=== PATIENT | female | born 1965 | race Asian ===

== ENCOUNTER 2016-06-16 10:58 | Day surgery (SDC) | payer OTHER ==
[2016-06-16] VITALS (7 sets, daily range): BP systolic 113–129; BP diastolic 52–74; PULSE 63–75; RESP 14–17; O2SAT 93–99
[~2016-06-16] VITALS: Ht 157.5 cm; Wt 79.4 kg
[~2016-06-16 10:58] MED LIST: ALBU8.5H2 INHALATION; CeFAZolin Inj 2 GM in IV Premix 1 EACH IV SCH; FLUT12AE10 IH; Lactated Ringer's 1,000 ML IV SCH
[2016-06-16] MEDS ORDERED: fentaNYL-PF 50 mCg/mL 2 mL Inj ONE (10:59)
[2016-06-16] MEDS ORDERED: Dexamethasone 4 mg/mL Inj ONE (10:59)
[2016-06-16] MEDS ORDERED: Propofol 10,000 mCg/mL 20 mL Inj ONE (10:59)
[2016-06-16] MEDS ORDERED: Ondansetron 2 mg/mL 2 mL Inj ONE (10:59)
[2016-06-16] MEDS ORDERED: Lactated Ringer's 1,000 ML IV ONE (11:46)
[2016-06-16] MEDS ORDERED: Lactated Ringer's 500 ML IV PRN (12:16)
[2016-06-16] MEDS ORDERED: Lactated Ringer's 1,000 ML IV SCH (12:16)
--- NOTE | 2016-06-16 12:16 | PCM.HPANE ---
Patient Data Surgeon Admitting Provider: Attending Provider:Hamilton Bonilla MD Primary Care Physician:Joel Other Provider:Dona Glover Anesthesia Reason for Visit History Of Breast Cancer,Disproportion Of Reconstr Ht/WT & BMI Height (Feet): 5 Height (Inches): 2.00 Weight (Kilograms): 79.379 Body Mass Index 32.00 Allergies Coded Allergies: TAPE (Verified Allergy, Unknown, UNKNOWN (PERMEABLE,ADHESIVE), 06/15/16) Past Anesthesia History Anesthesia History: Denies:: Abnormal Airway, Anesthesia Reactions, Difficult Intubation, Malignant Hyperthermia Diabetes History Hx Diabetes?: No MRSA MRSA: No Medications Hypertension Medication: No Home Meds Incl Beta Atilio: No Reported Medications Albuterol HFA (Proair HFA)8.5 Gm Hfa.aer.ad2 Puffs INHALATION Q4H PRN PRN #1 INHALER 06/15/16 Fluticasone Propionate (Flovent HFA 220 mcg)12 Gm Aer.w.adap1 Puff IH BID #12 GM Ref 0 02/05/15 Discontinued Reported Medications Albuterol HFA 8.5 Gm Hfa.aer.ad1 Puff IH Q4 PRN For Shortness of Breath #1 INHALER Ref 0 05/07/14 History History of ENT Problems?: Yes HEENT History: Positive for:: Sinus Problem Denies:: Abnormal Airway Cataracts (HX DRY EYES) Difficult Intubation Denture Type: Partial- Upper Hx of Heart Problems?: Yes Cardiovascular History: Positive for:: Hypertension Denies:: Heart Murmur Hx of Respiratory Problem?: Yes Respiratory History: Positive for:: Asthma (MILD) Cough Dyspnea (W/ INTERMITTANT WHEEZING) Use of Inhalers / NEBS Denies:: Use of C-PAP Machine Hx Neurologic Problems?: No Hx of GI Problems?: Yes Gastrointestinal History: Positive for:: Gall Bladder Disease (S/P JASPAL) Other GI Pertinent History: HX UMBILICAL HERNIA S/P VENTRAL HERNIA RPR,LYSIS OF TETHERED ABD SCAR Hx of Problems?: Yes Genitourinary History: Positive for:: Urinary Tract Infection (HX OF) Female Hx: Positive for:: Problems with Breasts? (BILAT BR BX'S,MASTECTOMY LT, MASTOPEXY RT,RECONSTRUCTION) Denies:: Currently (TUBAL LIG) Pelvic Inflammatory (NEW RT BREAST NODULE NOTED) Skin History: Positive for:: History Skin Disorders? (SKIN CHANGES BILAT BREASTS, RASH RT KNEE) Denies:: Pressure Ulcers Hx Musculoskeletal Problems?: No Hx of Psycho/Social Problems?: No Hx Surgeries?: Yes (VENTRAL HERNIA RPR,LT BREAST BX,RT BREAST BX,MASTECTOMY, MASTOPEXY,RELEASE A) Hx Any Other Health Problems?: Yes Other History: Denies:: Cancer Endocrine Disease Hospitalization Thyroid Disease History Blood Transfusions: Denies:: Blood Transfusions Hx Diabetes: No Hx Alcohol Use: NoHx Substance Use: No Smoking Status: Never Smoker Have You Smoked inLast 12 mo: No Stop/Bang S-Snoring: Do You Snore Loudly: No T-Tired: feel tired, fatigued: No O-Obsered: Observed not breath: No P-Blood Pressure: treated: Yes B- Body Mass Index > 35 kg/m2: No A- Age over 50: Yes N- Neck Large Circumference: No G- Gender Male: No DEVANG Total Score: 2 Risk Assessment Category Category 1A: Patient has history of documented sleep apnea, and HAS NOT received any narcotic, sedative or anesthesia administration during this stay. Category 1B: Patient has history of documented sleep apnea, and HAS received any narcotic , sedative or anesthesia administration during this stay Category 2: Patient has SUSPECTED Obstructive Sleep Apnea, and HAS received any narcotic , sedative or anesthesia administration during this stay. Category 3: Patient has SUSPECTED Obstructive Sleep Apnea and HAS NOT received narcotic, sedative or anesthesia administration during this stay. Category 4: Outpatient in Procedural Areas with known sleep apnea or who screen positive for High Risk via the STOP/BANG questionnaire. Exam Exam Vital Signs Vital Signs Date Time Temp Pulse Resp B/P Pulse Ox O2 Delivery O2 Flow Rate FiO2 06/16/16 11:48 68 17 113/68 96 Room Air General Appearance: Alert, Oriented X3, Cooperative, No Acute Distress HEENT/AIRWAY: MP 2 Lungs: Normal Air Movement Heart: Exam Unremarkable Meds/Labs/Diagnostics Admission Meds Current Medications Lactated Ringer's (Lr) 1,000 ml @ ud STK-MED ONCE IV Last administered on t 11:46; Start 06/16/16 at 11:46; Stop 06/16/16 at 11:47; Status DC Plan Impression Patient chart reviewed, patient interviewed and anesthestic plan with risks, benefits, and alternatives discussed, and informed consent obtained. NPO Status: 06/15@2130 ASA Physical Status: ASA3 Severe Disease Anesthetic Plan: GA Bene/Risks/Altern/Consents: Yes HP Complete Prior to Induction: Yes Jose Dunbar MD Jun 16, 2016 12:16
[2016-06-16] MEDS ORDERED: Phenylephrine 10,000 mCg/mL Inj IVPUSH PRN (12:20)
[2016-06-16] MEDS ORDERED: Dexamethasone 4 mg/mL Inj IVPUSH PRN (12:20)
[2016-06-16] MEDS ORDERED: MetoCLOpramide 5 mg/mL 2 mL Inj IVPUSH PRN (12:20)
[2016-06-16] MEDS ORDERED: Ondansetron 2 mg/mL 2 mL Inj IVPUSH PRN (12:20)
[2016-06-16] MEDS ORDERED: HYDROmorphone 1 mg/mL Inj IVPUSH PRN (12:20)
[2016-06-16] MEDS ORDERED: EPHEDrine Sulfate 50 mg/mL Inj IVPUSH PRN (12:20)
[2016-06-16] MEDS ORDERED: fentaNYL-PF 50 mCg/mL 2 mL Inj IVPUSH PRN (12:20)
[2016-06-16] MEDS ORDERED: HYDROcodone-APAP 5-325 mg Tablet PO PRN (14:05)
--- NOTE | 2016-06-16 14:15 | PCM.ANEP2 ---
Post Anesthesia Evaluation ASA/CMS Post Anesthesia VS in Patient's Normal Range?: Yes Resp Stable; Airway Patent?: Yes CV Function & Hydration Stable: Yes Mental Status Recovered?: Yes Pain control Satisfactory?: Yes N/V Control Satisfactory?: Yes Jose Dunbar MD Jun 16, 2016 14:15
--- NOTE | 2016-06-16 14:15 | PCM.ANEP1 ---
Post Anesthesia Phase 1 PACU Phase 1 Assessment Vital Signs Vital Signs Date Time Temp Pulse Resp B/P Pulse Ox O2 Delivery O2 Flow Rate FiO2 06/16/16 14:10 75 15 124/64 98 Room Air 06/16/16 14:05 36.6 74 17 126/65 99 Room Air 06/16/16 11:48 68 17 113/68 96 Room Air Anesthetic Administered: GA Level of Alertness: Awake, talking DE LEON's with Equal Strength: Yes Pain: No Nausea or Vomiting: No Lungs: Normal Air Movement Dermatome Level: Full Sensation Jose Dunbar MD Jun 16, 2016 14:15
--- NOTE | 2016-06-18 19:35 | OP ---
[address] [address] OPERATIVE REPORT PATIENT: SATYA STEIN V : 1965 MR#: [id number] ADMIT: 06/16/2016 JOB ID: [id number] DATE OF SURGERY: 06/16/2016 PREOPERATIVE DIAGNOSIS(ES): 1. Asymmetry between reconstructed breast and [place] breast. 2. History of breast cancer. POSTOPERATIVE DIAGNOSIS(ES): 1. Asymmetry between reconstructed breast and [place] breast. 2. History of breast cancer. PROCEDURE: Revision right nipple-areolar reconstruction using a mastopexy technique. SURGEON: Hamilton Bonilla MD CREATIVE ASSISTANT: None. ANESTHESIA: General anesthesia. COMPLICATIONS: None apparent. SPECIMEN: None. INDICATIONS FOR PROCEDURE: This is a 51-year-old female patient with a history of left-sided breast cancer status post autologous breast reconstruction. I have worked with the patient on several occasions in the past, most recently I performed a right-sided mastopexy and left-sided nipple-areolar reconstruction. The patient is overall fairly happy with the result. However, the patient continues to have some asymmetry between the nipple-areolar complex size. At this point, right nipple-areolar reconstruction is indicated. PROCEDURES AND FINDINGS: The patient was identified in the preop in the preoperative area. With the patient in sitting position, I re-marked the desired infra-nipple areolar size and location. Excess nipple to fold distance was also marked. The patient was then taken back to the operating room and placed supine on the operating table. Appropriate time-outs were taken. General anesthesia was induced smoothly. The patient was then prepped and draped in the usual sterile manner. At this point, the left nipple-areolar complex was sized to be approximately 38 mm. Using the 38 mm nipple sizer, a nipple-areolar complex was marked on the right side. The outer ugashik of the reconstruction was then marked using the numbers obtained in the preoperative area. Superiorly approximately 1 cm of the nipple-areolar complex was marked for excision. Inferiorly the area marked for excision was approximately 1.5 cm, which included most of the new nipple-areolar complex plus some normal skin. An incision was then made along both the inner and outer excision perez. The intervening nipple areolar complex and skin was de-epithelialized. Once this had been done I deepened the incision down through the dermis, between the inner and outer ugashik, leaving a 5-6 mm cuff on the outer incision. Once this had been done, incision was then made again right along the new nipple-areolar complex. The dermis between the new nipple-areolar complex and the cuff was removed. Once this had been done, a CV3 [place]-Momo suture was then used and placed in a pursestring manner on the dermal cuff that was left just inside the outer incision. Once this had been done, the outer nipple-areolar complex. incision was cinched down to 38 mm. The [place]-Momo suture was then tied down using 10 knots. The knot was then buried in the deep tissue. Once this had been done, the nipple-areolar complex was then sutured to the keyhole, first with a layer of 3-0 Monocryl deep dermal suture, followed by 4-0 Monocryl running subcuticular suture. Skin glue was applied. The patient tolerated the procedure well. Needle count, sponge count, and instrument counts were correct at the end of the procedure. The patient was extubated and transported to recovery in stable condition.
== END 2016-06-16 23:59 | disposition home or self-care (01) ==
LOC: SAS 10:58
PROVIDERS: ATTEND Plastic Surgery
DX: N65.1 Disproportion of reconstructed breast (principal); I10 Essential (primary) hypertension; J45.909 Unspecified asthma, uncomplicated; Z87.440 Personal history of urinary (tract) infections; Z85.3 Personal history of malignant neoplasm of breast
CPT/HCPCS: 19350; J0690; J1100; J2250; J2405; J3010; J7120

== ENCOUNTER → 2016-12-06 | Day surgery (SDC) | payer OTHER ==
[~2016-12-06] VITALS: Ht 157.5 cm; Wt 81.0 kg
[~2016-12-06] MED LIST changes: +0.9% Sodium Chloride 1,000 ML IV PRN; -CeFAZolin Inj 2 GM in IV Premix 1 EACH IV SCH; -Lactated Ringer's 1,000 ML IV SCH; +Sodium Chloride LOK Flush 10 mL Syringe IV PRN; +fentaNYL-PF 50 mCg/mL 2 mL Inj IVPUSH PRN
[2016-12-06 08:31] VITALS: BP 123/65; PULSE 59; RESP 17; O2SAT 98
--- NOTE | 2016-12-06 09:16 | PCM.ENDCOL ---
Colonoscopy Date of Service: Dec 06, 2016 Physician Sam Edmond MD Pre Procedure Diagnosis: Screening abdominal pain Post Procedure Dx & Findings: Diverticuli hemorrhoids Procedure Colonoscopy PROCEDURE IN DETAIL: Prep adequate Withdrawal time 11 minutes After unremarkable rectal examination the Olympus video colonoscope was inserted patient's anal canal and was advanced to cecum. Landmarks were identified including the ileocecal valve and appendiceal orifice. Scope was further advanced the terminal ileum. Advanced 10 cm. Terminal ileum showed normal villous structures without any ulcer mass erosion. Scope was withdrawn systematically. Visualized colonic mucosa showed healthy shiny mucosa with normal healthy-appearing vasculature. In the sigmoid colon there were a few small diverticuli however we also saw few diverticuli in the cecum. In the rectum retroflexion was done which showed hemorrhoids. Anal canal was inspected carefully on the way out and hemorrhoids noted. Impression Normal TI Diverticuli Hemorrhoids Recommendation Repeat colonoscopy in 10 years Diverticular diet Presedation Assessment Risks and Benefits Informed consent was obtained from the patient after all risks and benefits including but not limited to drug reaction, infection, pain, bleeding, perforation, as well as alternatives were discussed. Patient monitoring Continuous pulse oximetry, cardiac monitoring, blood pressure monitoring, IV access, and oxygen at 2L per nasal cannula. Periprocedural Fentanyl: Fentanyl 75mcg Incrementally Midazolam: Midazolam 4mg Incrementally Complications There were no periprocedural complications identified. Post Procedure Plan Post Procedure Recommendations 1. Restrict activities today. 2. Resume normal activities in the morning. 3. Resume medications. 4. Patient informed of normal post procedure side effects as bloating, drowsiness, blood streaking in the stool. 5. average risk CRCS. If colon polyps come back as: -Hyperplastic- can repeat colonoscopy in 10 years -Tubular adenoma- repeat colonoscopy in 5 years -Tubulovillous/villous adenoma- repeat colonoscopy in 3 years -If any dysplasia- return to clinic as soon as possible 6. Please don't hesitate to call me with any questions. Sam Edmond MD Dec 06, 2016 09:16
[2016-12-06 09:24] VITALS: BP 112/63; PULSE 58; RESP 15; O2SAT 94
[2016-12-06 09:36] VITALS: BP 114/63; PULSE 63; RESP 15; O2SAT 96
== END | disposition home or self-care (01) ==
LOC: END 07:39
PROVIDERS: ATTEND Internal Medicine
DX: Z12.11 Encounter for screening for malignant neoplasm of colon (principal); K57.30 Diverticulosis of large intestine without perforation or abscess without bleeding; K64.8 Other hemorrhoids
CPT/HCPCS: G0121; G0500; J2250; J3010; J7030